=== PATIENT | male | born 1985 ===

== ENCOUNTER 2017-12-17 22:18 | Emergency (ER) | payer OTHER ==
[~2017-12-17] VITALS: Ht 170.2 cm; Wt 76.2 kg
[~2017-12-17 22:18] MED LIST: ALBU90OI INH; QVAR7.3 G1 INH; SPACE CHAMBER1 EACH MC
[2017-12-18] MEDS ORDERED: ERYT1OIN BOTHEYES (02:29)
[2017-12-18] MEDS ORDERED: CEPH500 PO (02:29)
[2017-12-18] MEDS ORDERED: Norco 10-325 T1 EACH PO (02:30)
== END 2017-12-18 02:59 | disposition home or self-care (01) ==
LOC: ER 22:18
DX: S61.212A Laceration without foreign body of right middle finger without damage to nail, initial encounter (principal); S61.214A Laceration without foreign body of right ring finger without damage to nail, initial encounter; S05.02XA Injury of conjunctiva and corneal abrasion without foreign body, left eye, initial encounter; S05.01XA Injury of conjunctiva and corneal abrasion without foreign body, right eye, initial encounter; X58.XXXA Exposure to other specified factors, initial encounter; J45.909 Unspecified asthma, uncomplicated; Z91.048 Other nonmedicinal substance allergy status; Z79.899 Other long term (current) drug therapy
CPT/HCPCS: 12001; 36415; 70450; 73030; 73130; 90471; 90714; 96374; 96375; 99284; J0690; J2405; J3010

== ENCOUNTER 2018-04-04 05:46 | Emergency (ER) | payer OTHER ==
[~2018-04-04] VITALS: Ht 170.2 cm; Wt 70.3 kg
[~2018-04-04 05:46] MED LIST changes: +CEPH500 PO; +ERYT1OIN BOTHEYES; +Norco 10-325 T1 EACH PO
[2018-04-04] MEDS ORDERED: ALBU90OI61 INH (06:03)
[2018-04-04] MEDS ORDERED: CETI5 PO ×2 (06:04→06:28)
[2018-04-04] MEDS ORDERED: FLONASE ALLERG9.9 ML (06:05)
[2018-04-04] MEDS ORDERED: ALBU90OI INH (06:28)
== END 2018-04-04 06:47 | disposition home or self-care (01) ==
LOC: ER 05:46
DX: J45.909 Unspecified asthma, uncomplicated (principal); H10.13 Acute atopic conjunctivitis, bilateral; F17.200 Nicotine dependence, unspecified, uncomplicated; Z91.048 Other nonmedicinal substance allergy status
CPT/HCPCS: 94640; 99283